=== PATIENT | female | born 1980 | race Two or more races ===

== ENCOUNTER 2017-09-20 04:57 | Inpatient (IN) | payer BC ==
--- NOTE | 2017-09-19 10:50 | PCM.LDHP ---
L&D History of Present Illness - General Date of Service: 09/12/17 Admit Problem/Dx: Admission Diagnosis/Problem Admission Diagnosis/Problem Source of Information: Patient History Limitations: Reports: No Limitations - History of Present Illness Introduction:: 36 y/o JANE 09/26/2017 Plan repeat section Tuesday09/20/2017 at EGA 39w1d. Advanced maternal age, Rh negative, GBS negative. Diet controlled GDM. O negative, 02/28/17 H/H 12.3/36.1 platelets [id number]. Rubella immune. RPR nonreactive, urine culture contamination. HBsAg negative, FIV negative. GC/CT negative. Given Rhogam 06/22/2017. H/H then 11.4/33.9. Platlets [id number]. OBGS 172. Three hour OGTT 86, 196, 155, 104. Improves with: Reports: None Worsens with: Reports: None Associated Symptoms: Reports: N - Related Data Allergies/Adverse Reactions: Allergies Allergy/AdvReac Type Severity Reaction Status Date / Time No Known Allergies Allergy Verified 09/19/17 10:51 Past Medical History : 2 Para: 1 (1001) - Past Surgical History Female Surgical History: Reports: Breast Implant Other Female Surgeries/Procedures: PRIOR EPIDURAL "HEADACHE" AND APPARANTLY LOW BP, FHR DECREASED Social & Family History - Tobacco Use Smoking Status *Q: Never Smoker - Alcohol Use Alcohol Use History: No H&P Review of Systems - Review of Systems: Review Of Systems: See Below General: Reports: No Symptoms HEENT: Reports: No Symptoms Pulmonary: Reports: No Symptoms Cardiovascular: Reports: No Symptoms Gastrointestinal: Reports: No Symptoms Genitourinary: Reports: No Symptoms Musculoskeletal: Reports: No Symptoms Skin: Reports: No Symptoms Psychiatric: Reports: No Symptoms Neurological: Reports: No Symptoms Hematologic/Lymphatic: Reports: No Symptoms Immunologic: Reports: No Symptoms L&D Exam - Exam Exam: See Below - Vital Signs Weight: 161 lb 4.8 oz - OB Specific Fundal Height In cm: 38 Estimated Weight: 8 - Matthew Score Matthew Score Cervix Position: Posterior Matthew Score Consistency: Soft Matthew Score Effacement: 0-30% Matthew Score Dilation: Closed Matthew Score Infant's Station: -3 Matthew Score Total: 2 - Exam General: Alert, Oriented HEENT: Conjunctiva Clear, Mucosa Moist & [place], PERRLA Neck: Supple, Trachea Midline Lungs: Clear to Auscultation, Normal Respiratory Effort Cardiovascular: Regular Rate, Regular Rhythm GI/Abdominal Exam: Normal Bowel Sounds, Soft, Non-Tender, No Organomegaly, No Distention, No Abnormal Bruit, Pelvis Stable Genitourinary: Normal external exam, Normal bimanual exam, Normal speculum exam Back Exam: Normal Inspection, Full Range of Motion Extremities: Normal Inspection, Normal Range of Motion, Non-Tender, No Pedal Edema, Normal Capillary Refill Skin: Warm, Dry, Intact Neurological: Reflexes Equal Bilateral Psychiatric: Alert, Normal Affect, Normal Mood - Problem List (1) 39 weeks gestation of SNOMED Code(s): 23174287 ICD Code: Z3A.39 - 39 WEEKS GESTATION OF Status: Acute (2) Advanced maternal age in multigravida SNOMED Code(s): 260513736 ICD Code: O09.529 - SUPERVISION OF ELDERLY MULTIGRAVIDA, UNSPECIFIED TRIMESTER Status: Acute (3) Previous delivery affecting SNOMED Code(s): 865016634 ICD Code: O34.219 - MATERNAL CARE FOR UNSP TYPE SCAR FROM PREVIOUS DEL Status: Acute (4) Rh negative status during in third trimester, antepartum SNOMED Code(s): 656748163 ICD Code: O09.893 - SUPERVISION OF OTHER HIGH RISK PREGNANCIES, THIRD TRIMESTER Status: Acute Problem List Initiated/Reviewed/Updated: No Assessment/Plan Comment:: Plan repeat section Tuesday09/20/2017
[~2017-09-20 04:57] MED LIST: Citric Acid/Sodium Citrate Solution 30 ML Cup PO ONE; Lactated Ringers 1,000 ML IV SCH; Lidocaine 1%/Sod Bicarbonate in NS 8.4% 1 ML Syringe IV PRN; Metoclopramide 10 MG/2 ML SDV IVPUSH ONE; Sodium Chloride 0.9% 10 ML Syringe FLUSH PRN; ceFAZolin 2 GM in Premix Bag 1 BAG IV ONE
[2017-09-20] MEDS: Lactated Ringers 1,000 ML IV SCH ×2 (05:29→07:22)
[2017-09-20] MEDS ORDERED: ceFAZolin 1 GM Vial ONE (06:50)
[2017-09-20] MEDS ORDERED: Ondansetron 4 MG/2 ML SDV ONE (06:50)
[2017-09-20] MEDS ORDERED: Ketorolac 30 MG/ML SDV ONE (06:50)
[2017-09-20] MEDS ORDERED: Morphine PF 10 MG/10 ML SDV ONE (06:51)
[2017-09-20] MEDS ORDERED: Bupivacaine 0.5% 30 ML SDV ONE (06:59)
[2017-09-20] MEDS ORDERED: Citric Acid/Sodium Citrate Solution 30 ML Cup PO ONE (07:00)
[2017-09-20] MEDS ORDERED: Metoclopramide 10 MG/2 ML SDV IVPUSH ONE (07:00)
--- NOTE | 2017-09-20 07:17 | PCM.PREANE ---
Preanesthetic Assessment - Anesthesia/Transfusion/Family Hx Anesthesia History: Prior Anesthesia Reaction Type of Anesthesia Reaction: Other (see below) Other Type of Anesthesia Reaction Comment: epidural headache, and low bp Family History of Anesthesia Reaction: No Transfusion History: No Prior Transfusion(s) - Review of Systems General: No Symptoms Pulmonary: No Symptoms Cardiovascular: No Symptoms Gastrointestinal: No Symptoms Neurological: No Symptoms Other: Reports: Diabetes (gestational diabetes, diet controlled) - Physical Assessment NPO Status Date: 09/19/17 NPO Status Time: 20:00 Pulse: 100 O2 Sat by Pulse Oximetry: 99 Respiratory Rate: 20 Blood Pressure: 114/72 Temperature: 36.3 C Vital Signs: Last Vital Signs Temp 36.3 C 09/20/17 05:16 Pulse 100 09/20/17 05:16 Resp 20 09/20/17 05:16 BP 114/72 09/20/17 05:16 Pulse Ox 99 09/20/17 05:16 Height: 1.63 m Weight: 73.482 kg ASA Class: 2 Mental Status: Alert & Oriented x3 Airway Class: Mallampati = 2 Dentition: Reports: Normal Dentition Thyro-Mental Finger Breadths: 3 Mouth Opening Finger Breadths: 3 ROM/Head Extension: Full Lungs: Clear to Auscultation, Normal Respiratory Effort Cardiovascular: Regular Rate, Regular Rhythm - Lab Values: Laboratory Last Values WBC 8.32 K/mm3 (3.98-10.04) 09/20/17 05:42 RBC 4.05 M/mm3 (3.98-5.22) 09/20/17 05:42 Hgb 11.6 gm/L (11.2-15.7) 09/20/17 05:42 Hct 34.6 % (34.1-44.9) 09/20/17 05:42 MCV 85.4 fl (79.4-94.8) 09/20/17 05:42 MCH 28.6 pg (25.6-32.2) 09/20/17 05:42 MCHC 33.5 g/dl (32.2-35.5) 09/20/17 05:42 RDW Std Deviation 41.2 fL (36.4-46.3) 09/20/17 05:42 Plt Count 251 K/mm3 (182-369) 09/20/17 05:42 MPV 9.7 fl (9.4-12.3) 09/20/17 05:42 Neut % (Auto) 66.8 % (34.0-71.1) 09/20/17 05:42 Lymph % (Auto) 24.4 % (19.3-51.7) 09/20/17 05:42 [place] % (Auto) 6.9 % (4.7-12.5) 09/20/17 05:42 Eos % (Auto) 1.1 (0.7-5.8) 09/20/17 05:42 Baso % (Auto) 0.4 % (0.1-1.2) 09/20/17 05:42 Neut # (Auto) 5.57 K/mm3 (1.56-6.13) 09/20/17 05:42 Lymph # (Auto) 2.03 K/mm3 (1.18-3.74) 09/20/17 05:42 [place] # (Auto) 0.57 K/mm3 (0.24-0.36) H 09/20/17 05:42 Eos # (Auto) 0.09 K/mm3 (0.04-0.36) 09/20/17 05:42 Baso # (Auto) 0.03 K/mm3 (0.01-0.08) 09/20/17 05:42 Blood Type O NEGATIVE 09/20/17 05:42 Gel Antibody Screen Negative 09/20/17 05:42 - Allergies Allergies/Adverse Reactions: Allergies Allergy/AdvReac Type Severity Reaction Status Date / Time No Known Allergies Allergy Verified 09/19/17 10:51 - Blood Blood Available: No Product(s) Available: None - Anesthesia Plan Pre-Op Medication Ordered: Antacids - Acknowledgements Anesthesia Type Planned: Spinal Pt an Appropriate Candidate for the Planned Anesthesia: Yes Alternatives and Risks of Anesthesia Discussed w Pt/Guardian: Yes Pt/Guardian Understands and Agrees with Anesthesia Plan: Yes PreAnesthesia Questionnaire - Past Health History Medical/Surgical History: Denies Medical/Surgical History RN PROCEDURES History: Reports: Other OB/BYN History: g2 p 1 - Past Surgical History Female Surgical History: Reports: Breast Implant Other Female Surgeries/Procedures: PRIOR EPIDURAL "HEADACHE" AND APPARANTLY LOW BP, FHR DECREASED - SUBSTANCE USE Smoking Status *Q: Never Smoker Second Hand Smoke Exposure: No Recreational Drug Use History: No - CURRENT (IN HOUSE) MEDS Current Meds: Current Medications Lactated Ringer's (Ringers, Lactated) 1,000 mls @ 125 mls/hr IV ASDIRECTED [facility] Last Admin: 09/20/17 05:29 Dose: 125 mls/hr Lactated Ringer's (Ringers, Lactated) 1,000 mls @ 125 mls/hr IV ASDIRECTED [facility] Cefazolin Sodium/Dextrose 2 gm (/ Premix) 50 mls @ 100 mls/hr IV ONETIME ONE Stop: 09/20/17 07:59 Oxytocin 20 unit/ Lactated (Ringer's) 1,002 mls @ 1,503 mls/hr IV ASDIRECTED [facility] PRN Reason: 500 MUNITS/MIN Lidocaine/Sodium Bicarbonate (Buffered Lidocaine 1% In Ns 8.4%) 0.25 ml IV ONETIME PRN PRN Reason: Prior to IV Start Sodium Chloride (Saline Flush) 10 ml FLUSH ASDIRECTED PRN PRN Reason: Keep Vein Open Sodium Chloride (Saline Flush) 10 ml FLUSH ASDIRECTED PRN PRN Reason: Keep Vein Open Discontinued Medications Bupivacaine HCl (Marcaine 0.5%) Confirm Administered Dose 30 ml .ROUTE .STK-MED ONE Stop: 09/20/17 07:00 Cefazolin Sodium (Ancef) Confirm Administered Dose 2 gm .ROUTE .STK-MED ONE Stop: 09/20/17 06:51 Citric Acid/Sodium Citrate (Bicitra Solution) 30 ml PO ONETIME ONE Stop: 09/20/17 02:38 Citric Acid/Sodium Citrate (Bicitra Solution) 30 ml PO ONETIME ONE Stop: 09/20/17 07:01 Ketorolac Tromethamine (Toradol) Confirm Administered Dose 30 mg .ROUTE .STK- MED ONE Stop: 09/20/17 06:51 Metoclopramide HCl (Reglan) 10 mg IVPUSH ONETIME ONE Stop: 09/20/17 02:38 Metoclopramide HCl (Reglan) 10 mg IVPUSH ONETIME ONE Stop: 09/20/17 07:01 Morphine Sulfate (Duramorph Pf) Confirm Administered Dose 10 mg .ROUTE .STK-MED ONE Stop: 09/20/17 06:52 Ondansetron HCl (Zofran) Confirm Administered Dose 4 mg .ROUTE .[facility] ONE Stop: 09/20/17 06:51
[2017-09-20] MEDS ORDERED: ceFAZolin 2 GM in Premix Bag 1 BAG IV ONE (07:30)
[2017-09-20] MEDS ORDERED: Oxytocin 10 Units/1 ML SDV ONE (08:32)
[2017-09-20] MEDS ORDERED: ePHEDrine/Normal Saline 25 MG/5 ML Syringe ONE (08:32)
[2017-09-20] MEDS ORDERED: Lactated Ringers 1,000 ML ONE (08:54)
--- NOTE | 2017-09-20 09:13 | PCM.OPNOTE ---
- General Post-Op/Procedure Note Date of Surgery/Procedure: 09/20/17 Operative Procedure(s): Repeat section Pre Op Diagnosis: 39 weeks gestation, previous section, advanced maternal age Post-Op Diagnosis: Same Anesthesia Technique: Spinal Primary Surgeon: Benedict Greer Secondary Surgeon: Bhaskar Hawley Anesthesia Provider: Jasmina Owusu Tray Room Worker: Tessie Ortega (EL) Reason Tray Room Worker Was Necessary: Asst. surgery, retraction, prevention of comorbidity and co-mortality Role of Tray Room Worker: Asst. surgery, retraction, prevention of comorbidity and co-mortality Fluid Replacement, Intraop: 2,500 Output, Urine Amount: 125 EBL in mLs: 500 Drain/Tube Comments:: [place] Complications: None Condition: Good Free Text/Narrative:: Patient was transported to operating room #1 and placed under spinal anesthesia in the supine position with wedge under the right hip and right flank. Prepared and draped in a sterile fashion. [place] catheter placed gravity drainage. SCDs in place and functioning prior surgery. Ancef 2 g given intravenously prior surgery. Timeout performed confirming name, date of , and procedure as repeat section. After confirming adequate level of anesthesia the patient's was brought to the operating room. The area of the incision was marked and injected 20 mL of 0.5% Marcaine without epinephrine in the area of the planned incision. The incision was made and care was sharp section to into the anterior fascia. The abdominal cavity was entered without difficulty. Bladder flap created and pushed caudad. Low segment transverse performed. Amnionic fluid clear upon entry into the amnionic cavity. Male liveborn delivered at 0820 hrs. on Tuesday09/20/17. Dr. Grant account group supervisor in attendance and cared for the . The Apgars were 8/9 weight 7 lbs. 1 oz. Cord blood collected from three-vessel cord, placenta was removed manually. Endometrial cavity inspected cervical patency assured. Sponge needle pack asthma sharp count correct times one the uterine incision closed with 2 layers. First layer closure 0 Monocryl running locking suture, second layer closure horizontal imbricating modified Lembert suture. Both tubes and ovaries were normal bilaterally and clots were removed from the cul-de-sac and the gutters bilaterally and the uterus placed into abdominal cavity the uterine incision inspected no bleeding. Sponge needle pack asthma sharp count correct 2. The abdominal cavity was closed with #1 PDS for the anterior fascia. The subcutaneous tissue was approximated with 5 interrupted sutures of 0 Monocryl. And the skin was closed with 3-0 Monocryl subcuticular closure with Jhony needle. Dermabond Preneo applied. Clots were cleaned from the vagina at the end of the procedure. Patient transported postanesthesia care unit in satisfactory condition. No blood transfusions were required.
--- NOTE | 2017-09-20 09:16 | PCM.POSTAN ---
POST ANESTHESIA ASSESSMENT - MENTAL STATUS Mental Status: Alert, Oriented - VITAL SIGNS Pulse Rate: 81 SaO2: 100 Resp Rate: 16 Blood Pressure: 79/52 (ephedrine given) Temperature: 36.2 C - RESPIRATORY Respiratory Status: Respiratory Rate WNL, Airway Patent, O2 Saturation Stable, Supplemental Oxygen - CARDIOVASCULAR CV Status: Pulse Rate WNL, Blood Pressure Stable - GASTROINTESTINAL GI Status: No Symptoms - PAIN Pain Score: 0 - POST OP HYDRATION Hydration Status: Adequate & Stable
[2017-09-20] MEDS ORDERED: Ondansetron 4 MG/2 ML SDV IVPUSH PRN (09:17)
[2017-09-20] MEDS ORDERED: Meperidine PF 50 MG/ML Syringe IVPUSH PRN (09:17)
[2017-09-20] MEDS ORDERED: fentaNYL 100 MCG/2 ML SDV IVPUSH PRN (09:17)
[2017-09-20] MEDS ORDERED: diphenhydrAMINE 50 MG/ML SDV IVPUSH PRN ×2 (09:17→09:18)
[2017-09-20] MEDS ORDERED: ePHEDrine 50 MG/ML SDV IVPUSH PRN ×2 (09:17→09:18)
[2017-09-20] MEDS ORDERED: HYDROmorphone 0.5 MG/0.5 ML Syringe IVPUSH PRN (09:17)
[2017-09-20] MEDS ORDERED: Naloxone 0.4 MG/ML SDV IVPUSH PRN (09:18)
[2017-09-20] MEDS ORDERED: Acetaminophen 325 MG Tab PO PRN (09:18)
[2017-09-20] MEDS ORDERED: Ibuprofen 600 MG Tab PO PRN (09:18)
[2017-09-20] MEDS ORDERED: Dextrose 5%-Lactated Ringers 1,000 ML IV SCH (09:18)
[2017-09-20] MEDS ORDERED: Lanolin 100% Cream 7 GM Tube TOP PRN (09:18)
[2017-09-20] MEDS ORDERED: Ondansetron 4 MG/2 ML SDV IV PRN (09:18)
[2017-09-20] MEDS ORDERED: Docusate Sodium 100 MG Cap PO PRN (09:18)
[2017-09-20] MEDS ORDERED: Sodium Chloride 0.9% 10 ML Syringe FLUSH PRN (09:18)
[2017-09-20] MEDS: Simethicone 80 MG Tab.Chew PO SCH ×3 (12:44→21:06)
[2017-09-20] MEDS: Ketorolac 30 MG/ML SDV IVPUSH SCH ×2 (14:40→21:06)
[2017-09-21] MEDS: Ketorolac 30 MG/ML SDV IVPUSH SCH (02:28)
--- NOTE | 2017-09-21 07:14 | PCM.SN ---
- Free Text/Narrative Note: POD#1/PPD#1 Afebrile. No heavy vaginal bleeding. Breast feeding. Incision normal. No leg cramping.
--- NOTE | 2017-09-21 08:23 | PCM48HPAN ---
Post Anesthesia Note - EVALUATION WITHIN 48HRS OF ANESTHETIC Vital Signs in Normal Range: Yes Patient Participated in Evaluation: Yes Respiratory Function Stable: Yes Airway Patent: Yes Cardiovascular Function Stable: Yes Hydration Status Stable: Yes Pain Control Satisfactory: Yes Nausea and Vomiting Control Satisfactory: Yes Mental Status Recovered: Yes
[2017-09-21] MEDS: Simethicone 80 MG Tab.Chew PO SCH ×4 (08:54→21:28)
[2017-09-21] MEDS: Ibuprofen 600 MG Tab PO PRN ×2 (13:38→19:53)
[2017-09-22] MEDS: Ibuprofen 600 MG Tab PO PRN (03:53)
--- NOTE | 2017-09-22 08:21 | PCM.DCSUM1 ---
Discharge Summary - Hospital Course Free Text/Narrative:: [facility] Post-Op/Procedure Note Patient Name: SUSAN FLORES Date of : 80 Patient Status: Inpatient Attending Provider: Benedict Greer Date: 09/20/17 09:07 Initialization Date: 09/20/17 09:07 - General Post-Op/Procedure Note Date of Surgery/Procedure: 09/20/17 Operative Procedure(s): Repeat section Pre Op Diagnosis: 39 weeks gestation, previous section, advanced maternal age Post-Op Diagnosis: Same Anesthesia Technique: Spinal Primary Surgeon: Benedict Greer Secondary Surgeon: Bhaskar Hawley Anesthesia Provider: Jasmina Owusu Credit Risk Analytics Manager: Tessie Ortega (EL) Reason Credit Risk Analytics Manager Was Necessary: Asst. surgery, retraction, prevention of comorbidity and co-mortality Role of Credit Risk Analytics Manager: Asst. surgery, retraction, prevention of comorbidity and co-mortality Fluid Replacement, Intraop: 2,500 Output, Urine Amount: 125 EBL in mLs: 500 Drain/Tube Comments:: [place] Complications: None Condition: Good Free Text/Narrative:: Patient was transported to operating room #1 and placed under spinal anesthesia in the supine position with wedge under the right hip and right flank. Prepared and draped in a sterile fashion. R[place] catheter placed gravity drainage. SCDs in place and functioning prior surgery. Ancef 2 g given intravenously prior surgery. Timeout performed confirming name, date of , and procedure as repeat section. After confirming adequate level of anesthesia the patient's was brought to the operating room. The area of the incision was marked and injected 20 mL of 0.5% Marcaine without epinephrine in the area of the planned incision. The incision was made and care was sharp section to into the anterior fascia. The abdominal cavity was entered without difficulty. Bladder flap created and pushed caudad. Low segment transverse performed. Amnionic fluid clear upon entry into the amnionic cavity. Male liveborn delivered at 0820 hrs. on Tuesday09/20/17. Dr. Grant cut off sawyer in attendance and cared for the . The Apgars were 8/9 weight 7 lbs. 1 oz. Cord blood collected from three-vessel cord, placenta was removed manually. Endometrial cavity inspected cervical patency assured. Sponge needle pack asthma sharp count correct times one the uterine incision closed with 2 layers. First layer closure 0 Monocryl running locking suture, second layer closure horizontal imbricating modified Lembert suture. Both tubes and ovaries were normal bilaterally and clots were removed from the cul-de-sac and the gutters bilaterally and the uterus placed into abdominal cavity the uterine incision inspected no bleeding. Sponge needle pack asthma sharp count correct 2. The abdominal cavity was closed with #1 PDS for the anterior fascia. The subcutaneous tissue was approximated with 5 interrupted sutures of 0 Monocryl. And the skin was closed with 3-0 Monocryl subcuticular closure with Jhony needle. Dermabond Preneo applied. Clots were cleaned from the vagina at the end of the procedure. Patient transported postanesthesia care unit in satisfactory condition. No blood transfusions were required. HPI Initial Comments: [facility] Post-Op/Procedure Note Patient Name: SUSAN FLORES Date of : 80 Patient Status: Inpatient Attending Provider: Benedict Greer Date: 09/20/17 09:07 Initialization Date: 09/20/17 09:07 - General Post-Op/Procedure Note Date of Surgery/Procedure: 09/20/17 Operative Procedure(s): Repeat section Pre Op Diagnosis: 39 weeks gestation, previous section, advanced maternal age Post-Op Diagnosis: Same Anesthesia Technique: Spinal Primary Surgeon: Benedict Greer Secondary Surgeon: Bhaskar Hawley Anesthesia Provider: Jasmina Owusu Credit Risk Analytics Manager: Tessie Ortega (EL) Reason Credit Risk Analytics Manager Was Necessary: Asst. surgery, retraction, prevention of comorbidity and co-mortality Role of Credit Risk Analytics Manager: Asst. surgery, retraction, prevention of comorbidity and co-mortality Fluid Replacement, Intraop: 2,500 Output, Urine Amount: 125 EBL in mLs: 500 Drain/Tube Comments:: [place] Complications: None Condition: Good Free Text/Narrative:: Patient was transported to operating room #1 and placed under spinal anesthesia in the supine position with wedge under the right hip and right flank. Prepared and draped in a sterile fashion. [place] catheter placed gravity drainage. SCDs in place and functioning prior surgery. Ancef 2 g given intravenously prior surgery. Timeout performed confirming name, date of , and procedure as repeat section. After confirming adequate level of anesthesia the patient's was brought to the operating room. The area of the incision was marked and injected 20 mL of 0.5% Marcaine without epinephrine in the area of the planned incision. The incision was made and care was sharp section to into the anterior fascia. The abdominal cavity was entered without difficulty. Bladder flap created and pushed caudad. Low segment transverse performed. Amnionic fluid clear upon entry into the amnionic cavity. Male liveborn delivered at 0820 hrs. on Tuesday09/20/17. Dr. Grant cut off sawyer in attendance and cared for the . The Apgars were 8/9 weight 7 lbs. 1 oz. Cord blood collected from three-vessel cord, placenta was removed manually. Endometrial cavity inspected cervical patency assured. Sponge needle pack asthma sharp count correct times one the uterine incision closed with 2 layers. First layer closure 0 Monocryl running locking suture, second layer closure horizontal imbricating modified Lembert suture. Both tubes and ovaries were normal bilaterally and clots were removed from the cul-de-sac and the gutters bilaterally and the uterus placed into abdominal cavity the uterine incision inspected no bleeding. Sponge needle pack asthma sharp count correct 2. The abdominal cavity was closed with #1 PDS for the anterior fascia. The subcutaneous tissue was approximated with 5 interrupted sutures of 0 Monocryl. And the skin was closed with 3-0 Monocryl subcuticular closure with Jhony needle. Dermabond Preneo applied. Clots were cleaned from the vagina at the end of the procedure. Patient transported postanesthesia care unit in satisfactory condition. No blood transfusions were required. Brief History: [facility] . Post-Op/Procedure Note. Patient Name: SUSAN FLORES [facility] Record Number: [id number]. Date of : 80Patient Status: Inpatient. Attending Provider: Benedict Greerount Number: [id number]. Date: 09/20/17 09:07Initialization Date: 03/02 09:07. - General Post-Op/Procedure Note. Date of Surgery/Procedure: 03/02. Operative Procedure(s): Repeat section. Pre Op Diagnosis: 39 weeks gestation, previous section, advanced maternal age. Post-Op Diagnosis: Same. Anesthesia Technique: Spinal. Primary Surgeon: Benedict Greer. Secondary Surgeon: Bhaskar Hawley. Anesthesia Provider: Jasmina Owusu. Credit Risk Analytics Manager: Tessie Ortega (EL). Reason Credit Risk Analytics Manager Was Necessary: Asst. surgery, retraction, prevention of comorbidity and co-mortality. Role of Credit Risk Analytics Manager: Asst. surgery, retraction, prevention of comorbidity and co- mortality. Fluid Replacement, Intraop: 2,500. Output, Urine Amount: 125. EBL in mLs: 500. Drain/Tube Comments:: [place]. Complications: None. Condition: Good. Free Text/Narrative:: Patient was transported to operating room #1 and placed under spinal anesthesia in the supine position with wedge under the right hip and right flank. Prepared and draped in a sterile fashion. [place] catheter placed gravity drainage. SCDs in place and functioning prior surgery. Ancef 2 g given intravenously prior surgery. Timeout performed confirming name, date of , and procedure as repeat section. After confirming adequate level of anesthesia the patient's was brought to the operating room. The area of the incision was marked and injected 20 mL of 0.5% Marcaine without epinephrine in the area of the planned incision. The incision was made and care was sharp section to into the anterior fascia. The abdominal cavity was entered without difficulty. Bladder flap created and pushed caudad. Low segment transverse performed. Amnionic fluid clear upon entry into the amnionic cavity. Male liveborn delivered at 0820 hrs. on Tuesday09/20/17. Dr. Grant cut off sawyer in attendance and cared for the . The Apgars were 8/9 weight 7 lbs. 1 oz. Cord blood collected from three-vessel cord, placenta was removed manually. Endometrial cavity inspected cervical patency assured. Sponge needle pack asthma sharp count correct times one the uterine incision closed with 2 layers. First layer closure 0 Monocryl running locking suture, second layer closure horizontal imbricating modified Lembert suture. Both tubes and ovaries were normal bilaterally and clots were removed from the cul-de-sac and the gutters bilaterally and the uterus placed into abdominal cavity the uterine incision inspected no bleeding. Sponge needle pack asthma sharp count correct 2. The abdominal cavity was closed with #1 PDS for the anterior fascia. The subcutaneous tissue was approximated with 5 interrupted sutures of 0 Monocryl. And the skin was closed with 3-0 Monocryl subcuticular closure with Jhony needle. Dermabond Preneo applied. Clots were cleaned from the vagina at the end of the procedure. Patient transported postanesthesia care unit in satisfactory condition. No blood transfusions were required. - Discharge Data Discharge Date: 09/22/17 Discharge Disposition: Home, Self-Care 01 Condition: Good - Discharge Diagnosis/Problem(s) (1) 39 weeks gestation of SNOMED Code(s): 93636622 ICD Code: Z3A.39 - 39 WEEKS GESTATION OF Status: Acute Current Visit: Yes (2) Advanced maternal age in multigravida SNOMED Code(s): 812174511 ICD Code: O09.529 - SUPERVISION OF ELDERLY MULTIGRAVIDA, UNSPECIFIED TRIMESTER Status: Acute Current Visit: Yes Qualifiers: Trimester: third trimester Qualified Code(s): O09.523 - Supervision of elderly multigravida, third trimester (3) Previous delivery affecting SNOMED Code(s): 145276103 ICD Code: O34.219 - MATERNAL CARE FOR UNSP TYPE SCAR FROM PREVIOUS DEL Status: Acute Current Visit: Yes (4) Rh negative status during in third trimester, antepartum SNOMED Code(s): 824930614 ICD Code: O09.893 - SUPERVISION OF OTHER HIGH RISK PREGNANCIES, THIRD TRIMESTER Status: Acute Current Visit: Yes - Patient Summary/Data Operative Procedure(s) Performed: Repeat section Complications: None Consults: None Hospital Course: Uneventful - Patient Instructions Diet: Regular Diet as Tolerated Driving: Do Not Drive (2 weeks) Showering/Bathing: May Shower, No Tub Bathing/Swimming (6 weeks) Wound/Incision Care: Keep Operative Site/Wound Site Clean and Dry Notify Provider of: Fever, Increased Pain, Swelling and Redness, Drainage, Nausea and/or Vomiting - Discharge Plan Home Medications: Home Meds Acetaminophen [Tylenol] 650 mg PO Q6H PRN tablet 09/22/17 [Rx] Docusate Sodium [Colace] 100 mg PO Q12H PRN cap 09/22/17 [Rx] Ibuprofen [IJD: Ibuprofen] 600 mg PO Q6H PRN tablet 09/22/17 [Rx] Lanolin [Lansinoh HPA] 1 spray TOP ASDIRECTED PRN tube 09/22/17 [Rx] Referrals: Benedict Greer MD [Physician] - (2 weeks) - Discharge Summary/Plan Comment DC Time >30 min.: No - Patient Data Vitals - Most Recent: Last Vital Signs Temp 98.4 F 09/22/17 03:55 Pulse 82 09/22/17 03:55 Resp 14 09/22/17 03:55 BP 94/58 L 09/22/17 03:55 Pulse Ox 97 09/22/17 03:55 Weight - Most Recent: 162 lb Med Orders - Current: Current Medications Acetaminophen (Tylenol) 650 mg PO Q4H PRN PRN Reason: mild pain or fever Diphenhydramine HCl (Benadryl) 25 mg IVPUSH Q6H PRN PRN Reason: Itching or Nausea Docusate Sodium (Colace) 100 mg PO Q12H PRN PRN Reason: Constipation Emollient Ointment (Lansinoh Hpa) 0 gm TOP ASDIRECTED PRN PRN Reason: Sore Nipples Ephedrine Sulfate (Ephedrine Sulfate) 5 mg IVPUSH SEECOMMENT PRN PRN Reason: Other Ibuprofen (Motrin) 600 mg PO Q6H PRN PRN Reason: mild pain or fever Last Admin: 09/22/17 03:53 Dose: 600 mg Naloxone HCl (Narcan) 0.1 mg IVPUSH SEECOMMENT PRN PRN Reason: Respiratory Depression Ondansetron HCl (Zofran) 4 mg IV Q8H PRN PRN Reason: Nausea/Vomiting [facility]ic[facility] ([facility]one) [facility] Last Admin: 09/21/17 21:28 Dose: 80 mg Sodium Chloride (Saline Flush) 10 ml FLUSH ASDIRECTED PRN PRN Reason: Keep Vein Open Discontinued Medications Bupivacaine HCl (Marcaine 0.5%) Confirm Administered Dose 30 ml .ROUTE .STK-MED ONE Stop: 09/20/17 07:00 Last Admin: 09/20/17 08:17 Dose: 17 ml Cefazolin Sodium (Ancef) Confirm Administered Dose 2 gm .ROUTE .STK-MED ONE Stop: 09/20/17 06:51 Citric Acid/Sodium Citrate (Bicitra Solution) 30 ml PO ONETIME ONE Stop: 09/20/17 02:38 Last Admin: 09/20/17 10:23 Dose: Not Given Citric Acid/Sodium Citrate (Bicitra Solution) 30 ml PO ONETIME ONE Stop: 09/20/17 07:01 Last Admin: 09/20/17 07:16 Dose: 30 ml Diphenhydramine HCl (Benadryl) 25 mg IVPUSH Q6H PRN PRN Reason: itching Stop: 09/20/17 16:00 Ephedrine Sulfate (Ephedrine In Ns) Confirm Administered Dose 25 mg .ROUTE .STK- MED ONE Stop: 09/20/17 08:33 Ephedrine Sulfate (Ephedrine Sulfate) 5 mg IVPUSH ASDIRECTED PRN PRN Reason: Hypotension Stop: 09/20/17 16:00 Fentanyl (Sublimaze) 50 mcg IVPUSH Q5M PRN PRN Reason: pain Stop: 09/20/17 16:00 Hydromorphone HCl (Dilaudid) 0.5 mg IVPUSH Q15M PRN PRN Reason: Pain (severe 7-10) Stop: 09/20/17 16:00 Lactated Ringer's (Ringers, Lactated) 1,000 mls @ 125 mls/hr IV ASDIRECTED [facility] Last Admin: 09/20/17 07:22 Dose: 500 mls/hr Lactated Ringer's (Ringers, Lactated) 1,000 mls @ 125 mls/hr IV ASDIRECTED [facility] Cefazolin Sodium/Dextrose 2 gm (/ Premix) 50 mls @ 100 mls/hr IV ONETIME ONE Stop: 09/20/17 07:59 Last Admin: 09/20/17 10:24 Dose: Not Given Oxytocin 20 unit/ Lactated (Ringer's) 1,002 mls @ 1,503 mls/hr IV ASDIRECTED [facility] PRN Reason: 500 MUNITS/MIN Lactated Ringer's (Ringers, Lactated) Confirm Administered Dose 1,000 mls @ as directed .ROUTE .STK-MED ONE Stop: 09/20/17 08:55 Dextrose/Lactated Ringer's (Dextrose 5%-Lactated Ringers) 1,000 mls @ 125 mls/ hr IV ASDIRECTED [facility] Stop: 09/20/17 17:17 Last Admin: 09/20/17 12:44 Dose: 125 mls/hr Ibuprofen (Motrin) 600 mg PO Q6H PRN PRN Reason: mild pain or fever Ketorolac Tromethamine (Toradol) Confirm Administered Dose 30 mg .ROUTE .STK- MED ONE Stop: 09/20/17 06:51 Ketorolac Tromethamine (Toradol) 30 mg IVPUSH Q6H [facility] Stop: 09/21/17 02:31 Last Admin: 09/21/17 02:28 Dose: 30 mg Lidocaine/Sodium Bicarbonate (Buffered Lidocaine 1% In Ns 8.4%) 0.25 ml IV ONETIME PRN PRN Reason: Prior to IV Start Meperidine HCl (Demerol) 12.5 mg IVPUSH ONETIME PRN PRN Reason: Shivering Stop: 09/20/17 16:00 Metoclopramide HCl (Reglan) 10 mg IVPUSH ONETIME ONE Stop: 09/20/17 02:38 Last Admin: 09/20/17 10:24 Dose: Not Given Metoclopramide HCl (Reglan) 10 mg IVPUSH ONETIME ONE Stop: 09/20/17 07:01 Last Admin: 09/20/17 07:16 Dose: 10 mg Morphine Sulfate (Duramorph Pf) Confirm Administered Dose 10 mg .ROUTE .STK-MED ONE Stop: 09/20/17 06:52 Ondansetron HCl (Zofran) Confirm Administered Dose 4 mg .ROUTE .STK-MED ONE Stop: 09/20/17 06:51 Ondansetron HCl (Zofran) 4 mg IVPUSH ONETIME PRN PRN Reason: Nausea/Vomiting Stop: 09/20/17 16:00 Oxytocin (Pitocin) Confirm Administered Dose 20 unit .ROUTE .STK-MED ONE Stop: 09/20/17 08:33 Sodium Chloride (Saline Flush) 10 ml FLUSH ASDIRECTED PRN PRN Reason: Keep Vein Open Sodium Chloride (Saline Flush) 10 ml FLUSH ASDIRECTED PRN PRN Reason: Keep Vein Open *Q Meaningful Use (DIS) - VTE *Q VTE Criteria *Q: - Stroke *Q Stroke Criteria *Q: - AMI *Q AMI Criteria *Q:
[2017-09-22] MEDS: Simethicone 80 MG Tab.Chew PO SCH (08:48)
== END 2017-09-22 10:45 | disposition home or self-care (01) | DRG 540 ==
LOC: JD.OB 04:57
PROVIDERS: ADMIT Obstetrics & Gynecology; ATTEND Obstetrics & Gynecology
PROC: 10D00Z1 Extraction of Products of Conception, Low, Open Approach (ICD-10-PCS; principal; 2017-09-20)
DX: O24.420 Gestational diabetes mellitus in childbirth, diet controlled (principal); O34.211 Maternal care for low transverse scar from previous cesarean delivery; N85.8 Other specified noninflammatory disorders of uterus; Z3A.39 39 weeks gestation of pregnancy; Z37.0 Single live birth
CPT/HCPCS: 01961; 36415; 85025; 86850; 86900; 86901; 94762; A9270-GY; J0690; J1885; J2270; J2405; J2590; J2765; J7042; J7050; J7120